=== PATIENT | female | born 2000 | race Caucasian/White ===

== ENCOUNTER → 2020-09-28 13:40 | Outpatient (BNVA) | payer BC, SELFPAY | PROVIDERS: Visit Provider Psychiatry & Neurology Psychiatry | DX: F43.12 Post-traumatic stress disorder, chronic (principal); F33.1 Major depressive disorder, recurrent, moderate; F41.1 Generalized anxiety disorder; F17.200 Nicotine dependence, unspecified, uncomplicated | CPT/HCPCS: 99204 ==

== ENCOUNTER → 2020-10-28 09:02 | Outpatient (BNVA) | payer BC, SELFPAY | PROVIDERS: Visit Provider Nurse Practitioner Women's Health | DX: Z11.3 Encounter for screening for infections with a predominantly sexual mode of transmission (principal); Z12.4 Encounter for screening for malignant neoplasm of cervix | CPT/HCPCS: 87491; 87591; 87661; 88175 ==

== ENCOUNTER → 2020-11-03 11:32 | Outpatient (BNVA) | payer BC, SELFPAY | PROVIDERS: Visit Provider Nurse Practitioner Women's Health | DX: Z30.9 Encounter for contraceptive management, unspecified (principal) | CPT/HCPCS: 81025 ==

== ENCOUNTER → 2020-11-09 07:23 | Outpatient (BNVA) | payer BC, SELFPAY | PROVIDERS: Visit Provider Psychiatry & Neurology Psychiatry | DX: F41.1 Generalized anxiety disorder (principal); F33.1 Major depressive disorder, recurrent, moderate; F43.12 Post-traumatic stress disorder, chronic; F17.200 Nicotine dependence, unspecified, uncomplicated | CPT/HCPCS: 99214 ==

== ENCOUNTER 2021-09-30 21:43 | Observation (INO) | payer BC, SELFPAY ==
[2021-09-30 22:18] VITALS: BP 124/76; PULSE 56; RESP 18; TEMP 36.3; O2SAT 98; BMI 40.7
[2021-10-01] VITALS (23 sets, daily range): BP systolic 113–165; BP diastolic 68–126; PULSE 55–96; RESP 13–20; TEMP 36.1–36.9; O2SAT 91–100
--- NOTE | 2021-10-01 01:16 | W.ED.COVID ---
Documented by User: DEMETRIO Kumar 10/01/21 03:05 HPI - COVID General: Chief Complaint: COVID symptoms Stated Complaint: Covid Symptons Time Seen by Provider: 10/01/21 01:16 Triage information: Has fever, cough or shortness of breath. No known COVID + exposure last 14 days History of Present Illness: 21-year-old female comes in today with complaints of periumbilical abdominal pain followed by nausea and vomiting beginning at 5:00 this evening. Patient denies any chronic medical problems. Patient does use Implanon control, last period was in 2014. Review of history note major depressive disorder with anxiety and nicotine dependence. Patient denies any diarrhea, abnormal vaginal discharge or bleeding. COVID 19 common symptoms: positive nausea and vomiting COVID Results: No Data to Display Review of Systems GI: Reports: abdominal pain, nausea and vomiting PFS ED PFSH: Medical History No pertinent past medical history neghx: htn,dm,thyroid,dvt/pe PCP: None Psychiatric care Surgical History No pertinent past surgical history Family History Father Diabetes Mother Hypertension Denies family history of Colon cancer Ovarian cancer Heart disease Hypercholesteremia Breast cancer Uterine cancer Thyroid disease Stroke Social History Smoking and tobacco status: current every day smoker History of recent travel: Yes Physical Exam Const: COMMON NORMALS: alert GENERAL APPEARANCE: ill appearing HENMT: COMMON NORMALS: normocephalic HEAD & SCALP: normocephalic Neck/C-Spine: COMMON NORMALS: full ROM Resp: COMMON NORMALS: normal respiratory effort and clear to auscultation bilaterally AUSCULTATION: clear to auscultation bilaterally Cardio: COMMON NORMALS: regular rhythm RATE: tachycardic RHYTHM: regular rhythm GI: COMMON NORMALS: Soft to palpation PALPATION: Yes Soft to palpation and Yes Tenderness to palpation present (GI) Details: other (Periumbilical) Extremity: COMMON NORMALS: normal to inspection Neuro: SENSORIUM/ORIENTATION: Yes alert Psych: COMMON NORMALS: cooperative Skin: COMMON NORMALS: no rashes or lesions noted GENERAL SKIN EXAM: no rashes or lesions noted Course ED course: 0300, reviewed patient with Dr. Mckeon who will assume care of the patient at the end of my shift. CT report came back with patient having acute appendicitis. Vital Signs: Vital signs: Vital Signs Temperature 97.4 F L 09/30/21 22:18 Pulse Rate 56 L 09/30/21 22:18 Respiratory Rate 14 10/01/21 03:22 Blood Pressure 124/76 09/30/21 22:18 Pulse Oximetry 98 09/30/21 22:18 [facility] - COVID Medical Decision Making Patient came in tonight with a sudden onset of nausea vomiting and periumbilical pain started about 5:00 this evening. On exam patient appeared ill. Patient had periumbilical pain with rebound tenderness to the right. Respirations were even lungs were clear to auscultation. Skin was warm and dry. Differential diagnosis includes but not limited to acute appendicitis, constipation, ovarian cyst. Laboratory values noted a white count 28,000, CMP was unremarkable, urinalysis was normal, CT of the abdomen pelvis noted appendicolith with acute appendicitis. Reviewed this with Dr. Mckeon who will contact surgery and get patient admitted for intervention. Lab Data : 10/01/21 01:26 10/01/21 01:26 Radiology Impressions Abdomen/Pelvis CT 10/01/21 01:19 IMPRESSION: Dilated fluid-filled proximal appendix measuring up to 13.7 mm, small appendiculith and haziness within the appendiceal mesentery, findings compatible with acute appendicitis. ADDENDUM: 10/01/21 0259 CRITICAL RESULT: THIS REPORT CONTAINS FINDINGS THAT MAY BE CRITICAL TO PATIENT CARE. The findings were communicated with CUCA Azul at 2:57 AM ATTENDING ANESTHESIOLOGIST on 10/01/2021. The findings were acknowledged and understood. Laboratory Results WBC 28.9 10^3/uL (4.0-10.0) H 10/01/21 01:26 RBC 5.41 10^6/uL (4.1-5.3) H 10/01/21 01:26 Hgb 16.4 g/dL (11.5-15.3) H 10/01/21 01:26 Hct 48.9 % (37.0-47.0) H 10/01/21 01:26 MCV 90.4 fl (81-99) 10/01/21 01: MCH 30.3 pg (28.0-34.0) 10/01/21: MCHC 33.5 g/dL (30.0-36.0) 10/01/21: RDW 11.1 % (12.1-15.1) L 10/01/21 01:26 Plt Count 414 10^3/cmm (130-400) H 10/01/21 01: MPV 9.5 fL (7.4-10.4) 10/01/21 01:26 Neut % (Auto) 93.5 % 10/01/21 01: Lymph % (Auto) 3.5 % 10/01/21: Bledsoe % (Auto) 2.1 % 10/01/21: Eos % (Auto) 0.0 % 10/01/21: Baso % (Auto) 0.2 % 10/01/21: Neut # (Auto) 27.05 10^3/uL (1.8-7.7) H 10/01/21 01:26 Lymph # (Auto) 1.0 10^3/uL (0.8-4.8) 10/01/21: Bledsoe # (Auto) 0.6 10^3/uL (0.2-0.9) 10/01/21 01: Eos # (Auto) 0.0 10^3/uL (0.0-0.8) 10/01/21 01: Baso # (Auto) 0.1 10^3/uL (0.0-0.1) 10/01/21 01:26 Nucleated RBC % (auto) 0 % 10/01/21: Nucleated RBCs # 0.0 /100WBC 10/01/21 01:26 Sodium 137 mmol/L (136-145) 10/01/21 01:26 Potassium 4.4 mmol/L (3.5-5.1) 10/01/21 01: Chloride 102 mmol/L (98-107) 10/01/21: Carbon Dioxide 20 mmol/L (22-29) L 10/01/21 01:26 Anion Gap 19.4 (5-19) H 10/01/21 01:26 BUN 12 mg/dL (6-20) 10/01/21 01: Creatinine 0.8 mg/dL (0.5-0.9) 10/01/21: GFR Calculation 88.9 mL/min (90-130) L 10/01/21 01:26 Glucose 165 mg/dL (65-115) H 10/01/21 01:26 Calculated Osmolality 287 mOsm/kg (285-295) 10/01/21 01:26 Calcium 9.4 mg/dL (8.5-10.5) 10/01/21: Total Bilirubin 0.4 mg/dL (0.15-1.2) 10/01/21: AST 25 U/L (0-32) 10/01/21: ALT 23 U/L (0-33) 10/01/21 01: Alkaline Phosphatase 125 IU/L (35-105) H 10/01/21 01:26 Total Protein 8.8 g/dL (6.6-8.7) H 10/01/21: Albumin 5.1 g/dL (3.5-5.2) 10/01/21: Globulin 3.7 g/dL (1.3-4.6) 10/01/21 01:26 HCG, Qual Negative (Negative) 10/01/21: Urine Color Yellow (Yellow) 10/01/21 02: Urine Appearance Sl hazy (CLEAR) 10/01/21 02: Urine pH 5 (5-7) 10/01/21 02: Ur Specific [place] 1.030 (1.005-1.030) 10/01/21 02: Urine Protein 1+ (Negative) H 10/01/21 02: Urine Glucose (UA) Norm (Normal) 10/01/21 02: Urine Ketones 3+ (Negative) H 10/01/21 02: Urine Blood Neg (Negative) 10/01/21 02: Urine Nitrate Negative (Negative) 10/01/21 02: Urine Bilirubin 1+ (Negative) H 10/01/21 02: Urine Urobilinogen Norm mg/dL (Negative) 10/01/21 02: Ur Leukocyte Esterase Negative (Negative) 10/01/21 02: Urine RBC 0-4 /hpf (0-2) H 10/01/21 02:29 Urine WBC 0-4 /hpf (0-5) H 10/01/21 02:29 Ur Squamous Epith Cells 10-15 /hpf (0-5) H 10/01/21 02:29 Amorphous Sediment Not Reportable 10/01/21 02:29 Urine Bacteria 2+ /hpf (NONE) H 10/01/21 02:29 Urine Mucus 3+ /hpf 10/01/21 02:29 No Data to Display Discharge Plan Discharge Patient Disposition: Admitted As Inpatient Clinical Impression: Acute appendicitis Condition: Stable Coding Level of Care Code 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 [employer] Fwd Exam Comprehensive Documented by User: Saeid Mckeon DO 10/01/21 03:30 HPI - COVID General: Chief Complaint: COVID symptoms Stated Complaint: Covid Symptons Time Seen by Provider: 10/01/21 01:16 COVID Results: No Data to Display PFS ED PFSH: Medical History No pertinent past medical history neghx: htn,dm,thyroid,dvt/pe PCP: None Psychiatric care Surgical History No pertinent past surgical history Family History Father Diabetes Mother Hypertension Denies family history of Colon cancer Ovarian cancer Heart disease Hypercholesteremia Breast cancer Uterine cancer Thyroid disease Stroke Social History Smoking and tobacco status: current every day smoker History of recent travel: Yes Course Vital Signs: Vital signs: Vital Signs Temperature 97.4 F L 09/30/21 22:18 Pulse Rate 56 L 09/30/21 22:18 Respiratory Rate 14 10/01/21 03:22 Blood Pressure 124/76 09/30/21 22:18 Pulse Oximetry 98 09/30/21 22:18 [facility] - COVID Medical Decision Making Patient came in tonight with a sudden onset of nausea vomiting and periumbilical pain started about 5:00 this evening. On exam patient appeared ill. Patient had periumbilical pain with rebound tenderness to the right. Respirations were even lungs were clear to auscultation. Skin was warm and dry. Differential diagnosis includes but not limited to acute appendicitis, constipation, ovarian cyst. Laboratory values noted a white count 28,000, CMP was unremarkable, urinalysis was normal, CT of the abdomen pelvis noted appendicolith with acute appendicitis. Reviewed this with Dr. Mckeon who will contact surgery and get patient admitted for intervention. This patient was originally seen by DEMETRIO Yanez.? I agree with his history, evaluation, and treatment. This patient has acute appendicitis. Spoke with surgery. Recommendations are Zosyn every 6 hours, pain and nausea control, LR at 150 an hour, and heparin 5000 subcu every 8 hours.. Surgery later this morning. Lab Data : 10/01/21 01:26 10/01/21 01:26 Radiology Impressions Abdomen/Pelvis CT 10/01/21 01:19 IMPRESSION: Dilated fluid-filled proximal appendix measuring up to 13.7 mm, small appendiculith and haziness within the appendiceal mesentery, findings compatible with acute appendicitis. ADDENDUM: 10/01/21 0259 CRITICAL RESULT: THIS REPORT CONTAINS FINDINGS THAT MAY BE CRITICAL TO PATIENT CARE. The findings were communicated with CUCA Azul at 2:57 AM ATTENDING ANESTHESIOLOGIST on 10/01/2021. The findings were acknowledged and understood. Laboratory Results WBC 28.9 10^3/uL (4.0-10.0) H 10/01/21 01:26 RBC 5.41 10^6/uL (4.1-5.3) H 10/01/21 01:26 Hgb 16.4 g/dL (11.5-15.3) H 10/01/21:26 Hct 48.9 % (37.0-47.0) H 10/01/21:26 MCV 90.4 fl (81-99) 10/01/21 01:26 MCH 30.3 pg (28.0-34.0) 10/01/21 01: MCHC 33.5 g/dL (30.0-36.0) 10/01/21 01: RDW 11.1 % (12.1-15.1) L 10/01/21 01:26 Plt Count 414 10^3/cmm (130-400) H 10/01/21 01:26 MPV 9.5 fL (7.4-10.4) 10/01/21 01:26 Neut % (Auto) 93.5 % 10/01/21 01: Lymph % (Auto) 3.5 % 10/01/21 01:26 Bledsoe % (Auto) 2.1 % 10/01/21 01:26 Eos % (Auto) 0.0 % 10/01/21 01:26 Baso % (Auto) 0.2 % 10/01/21: Neut # (Auto) 27.05 10^3/uL (1.8-7.7) H 10/01/21 01:26 Lymph # (Auto) 1.0 10^3/uL (0.8-4.8) 10/01/21 01:26 Bledsoe # (Auto) 0.6 10^3/uL (0.2-0.9) 10/01/21 01:26 Eos # (Auto) 0.0 10^3/uL (0.0-0.8) 10/01/21 01:26 Baso # (Auto) 0.1 10^3/uL (0.0-0.1) 10/01/21 01:26 Nucleated RBC % (auto) 0 % 10/01/21 01:26 Nucleated RBCs # 0.0 /100WBC 10/01/21 01:26 Sodium 137 mmol/L (136-145) 10/01/21 01:26 Potassium 4.4 mmol/L (3.5-5.1) 10/01/21 01:26 Chloride 102 mmol/L (98-107) 10/01/21 01:26 Carbon Dioxide 20 mmol/L (22-29) L 10/01/21 01:26 Anion Gap 19.4 (5-19) H 10/01/21 01:26 BUN 12 mg/dL (6-20) 10/01/21 01:26 Creatinine 0.8 mg/dL (0.5-0.9) 10/01/21 01:26 GFR Calculation 88.9 mL/min (90-130) L 10/01/21 01:26 Glucose 165 mg/dL (65-115) H 10/01/21 01:26 Calculated Osmolality 287 mOsm/kg (285-295) 10/01/21 01:26 Calcium 9.4 mg/dL (8.5-10.5) 10/01/21 01:26 Total Bilirubin 0.4 mg/dL (0.15-1.2) 10/01/21 01:26 AST 25 U/L (0-32) 10/01/21 01:26 ALT 23 U/L (0-33) 10/01/21 01:26 Alkaline Phosphatase 125 IU/L (35-105) H 10/01/21 01:26 Total Protein 8.8 g/dL (6.6-8.7) H 10/01/21 01: Albumin 5.1 g/dL (3.5-5.2) 10/01/21: Globulin 3.7 g/dL (1.3-4.6) 10/01/21 01:26 HCG, Qual Negative (Negative) 10/01/21: Urine Color Yellow (Yellow) 10/01/21 02: Urine Appearance Sl hazy (CLEAR) 10/01/21 02: Urine pH 5 (5-7) 10/01/21 02: Ur Specific [place] 1.030 (1.005-1.030) 10/01/21 02:29 Urine Protein 1+ (Negative) H 10/01/21 02:29 Urine Glucose (UA) Norm (Normal) 10/01/21 02: Urine Ketones 3+ (Negative) H 10/01/21 02: Urine Blood Neg (Negative) 10/01/21 02: Urine Nitrate Negative (Negative) 10/01/21 02:29 Urine Bilirubin 1+ (Negative) H 10/01/21 02: Urine Urobilinogen Norm mg/dL (Negative) 10/01/21 02: Ur Leukocyte Esterase Negative (Negative) 10/01/21 02:29 Urine RBC 0-4 /hpf (0-2) H 10/01/21 02:29 Urine WBC 0-4 /hpf (0-5) H 10/01/21 02:29 Ur Squamous Epith Cells 10-15 /hpf (0-5) H 10/01/21 02:29 Amorphous Sediment Not Reportable 10/01/21 02:29 Urine Bacteria 2+ /hpf (NONE) H 10/01/21 02:29 Urine Mucus 3+ /hpf 10/01/21 02:29 No Data to Display Discharge Plan Discharge Patient Disposition: Admitted As Inpatient Clinical Impression: Acute appendicitis Condition: Stable Coding Level of Care Code 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
--- NOTE | 2021-10-01 01:19 | CTR_ITS ---
PROCEDURE INFORMATION: Exam: CT Abdomen And Pelvis With Contrast Exam date and time: 10/01/2021 1:19 AM Age: 21 years old Clinical indication: Nausea and vomiting; Abdominal pain; Localized; Right lower quadrant (rlq); Additional info: Periumbilical tenderness, rlq TECHNIQUE: Imaging protocol: Computed tomography of the abdomen and pelvis with contrast. Radiation optimization: All CT scans at this facility use at least one of these dose optimization techniques: automated exposure control; mA and/or kV adjustment per patient size (includes targeted exams where dose is matched to clinical indication); or iterative reconstruction. Contrast material: OMNI 300; Contrast volume: 95 ml; Contrast route: INTRAVENOUS (IV); COMPARISON: No relevant prior studies available. RADIATION DOSE METRICS: Total DLP (mGy-cm): 1945.99 FINDINGS: Liver: Normal. No mass. Gallbladder and bile ducts: Normal. No calcified stones. No ductal dilation. Pancreas: Normal. No ductal dilation. Spleen: Normal. No splenomegaly. Adrenal glands: Normal. No mass. Kidneys and ureters: Normal. No hydronephrosis. Stomach and bowel: Unremarkable. No obstruction. No mucosal thickening. Appendix: There is dilatation of the fluid-filled proximal appendix measuring 13.7 mm. There is a small appendicoliths present as well. Subtle haziness seen in the appendiceal mesentery compatible with mild inflammatory changes. These findings are compatible with acute appendicitis. Intraperitoneal space: Unremarkable. No free air. No significant fluid collection. Vasculature: Unremarkable. No abdominal aortic aneurysm. Lymph nodes: Unremarkable. No enlarged lymph nodes. Urinary bladder: Unremarkable as visualized. Reproductive: Unremarkable as visualized. Bones/joints: Unremarkable. No acute fracture. Soft tissues: Unremarkable. CT/CT abdomen pelvis w con* [id number] IMPRESSION: Dilated fluid-filled proximal appendix measuring up to 13.7 mm, small appendiculith and haziness within the appendiceal mesentery, findings compatible with acute appendicitis.
[2021-10-01 01:35] LABS: Basophils # 0.1 10^3/uL (0.0-0.1); Basophils % 0.2 %; Hematocrit 48.9 % (37.0-47.0); Hemoglobin 16.4 g/dL (11.5-15.3); Lymphocytes % 3.5 %; Mean Corpuscular HGB Conc 33.5 g/dL (30.0-36.0); Mean Corpuscular Hemoglobin 30.3 pg (28.0-34.0); Mean Corpuscular Volume 90.4 fl (81-99); Mean Platelet Volume 9.5 fL (7.4-10.4); Monocytes # 0.6 10^3/uL (0.2-0.9); Monocytes % 2.1 %; Neutrophils # 27.05 10^3/uL (1.8-7.7); Neutrophils % 93.5 %; Nucleated Red Blood Cells % 0 %; Platelet Count 414 10^3/cmm (130-400); Red Blood Count 5.41 10^6/uL (4.1-5.3); Red Cell Distribution Width 11.1 % (12.1-15.1); White Blood Count 28.9 10^3/uL (4.0-10.0)
[2021-10-01] MEDS: morphine 4 mg/mL SDV 1 mL 2 MG IVP ×2 (01:42→13:47)
[2021-10-01] MEDS: ondansetron 2 mg/ML SDV 2 mL 4 MG IVP (01:42)
[2021-10-01] MEDS: sodium chloride 0.9% 1,000 ML 999 ML IV ×2 (01:42→02:26)
[2021-10-01 01:58] LABS: Alanine Aminotransferase 23 U/L (0-33); Albumin Level 5.1 g/dL (3.5-5.2); Alkaline Phosphatase 125 IU/L (35-105); Anion Gap 19.4 (5-19); Aspartate Amino Transferase 25 U/L (0-32); Blood Urea Nitrogen 12 mg/dL (6-20); Calcium 9.4 mg/dL (8.5-10.5); Carbon Dioxide 20 mmol/L (22-29); Chloride 102 mmol/L (98-107); Globulin 3.7 g/dL (1.3-4.6); Glomerular Filtration Rate 88.9 mL/min (90-130); Glucose 165 mg/dL (65-115); Osmolality Calculated 287 mOsm/kg (285-295); Potassium 4.4 mmol/L (3.5-5.1); Sodium 137 mmol/L (136-145); Total Bilirubin 0.4 mg/dL (0.15-1.2); Total Protein 8.8 g/dL (6.6-8.7)
[2021-10-01 02:09] LABS: HCG, Serum Qual Negative (Negative)
[2021-10-01] MEDS: iohexol 300 mg/mL 100 mL Btl IV (02:38)
[2021-10-01] MEDS: morphine 4 mg/mL SDV 1 mL IVP (02:53)
[2021-10-01 03:01] LABS: Bilirubin Urine 1+ (Negative); Blood Urine Neg (Negative); Glucose Urine UA Norm (Normal); Ketones Urine 3+ (Negative); Leukocyte Esterase Urine Negative (Negative); Nitrate Urine Negative (Negative); Protein Urine 1+ (Negative); Urine Appearance SL Hazy (CLEAR); Urine Color Yellow (Yellow); Urobilinogen Urine Norm (Negative); pH Urine 5 (5-7)
[2021-10-01 03:02] LABS: Add Urine Culture? No; Add Urine Microscopic? YES; Bacteria Urine 2+ /hpf; Mucus Urine 3+ /hpf; RBC Urine 0-4 /hpf (0-2); WBC Urine 0-4 /hpf (0-5)
[2021-10-01] MEDS: HYDROmorphone 1 mg/mL INJ 1 mL IVP (03:22)
[2021-10-01] MEDS: piperacillin-tazobactam 3.375 GM in sodium chloride 0.9% (plus) 50 ML IV ×3 (03:23→19:55)
--- NOTE | 2021-10-01 07:04 | PC.NURSE ---
report given to Eron
--- NOTE | 2021-10-01 07:07 | P.HP_ITS ---
Providers/Chief Complaint Admitting Physician: Steven Crum MD Chief Complaint: Abdominal pain History of Present Illness Ms.Aubrey Freire is pleasent 21 year old female Patient morbidly obese with a current weight of 260 pounds and a BMI of 41,history of major depressive disorder with anxiety and nicotine dependence.Presents to the emergency department with abdominal pain associated with nausea and vomiting. Since 5 PM yesterday. Patient reports that the pain was more dull started on the periumbilical area and started shifting towards the right side. He also reports that she had couple of episodes of vomiting preceded with nausea and shaking. As her pain got worse came to the ER for further work-up CBC shows WBC count of 28.9,Hemoglobin of 16.4,platlets 414, serum creatinine 0.8, alk [id number]. CT scan of the abdomen pelvis was done that showed: Liver: Normal. No mass. Gallbladder and bile ducts: Normal. No calcified stones. No ductal dilation. Pancreas: Normal. No ductal dilation. Spleen: Normal. No splenomegaly. Adrenal glands: Normal. No mass. Kidneys and ureters: Normal. No hydronephrosis. Stomach and bowel: Unremarkable. No obstruction. No mucosal thickening. Appendix: There is dilatation of the fluid-filled proximal appendix measuring 13.7 mm. There is a small appendicoliths present as well. Subtle haziness seen in the appendiceal mesentery compatible with mild inflammatory changes. These findings are compatible with acute appendicitis. Intraperitoneal space: Unremarkable. No free air. No significant fluid collection. Vasculature: Unremarkable. No abdominal aortic aneurysm. Lymph nodes: Unremarkable. No enlarged lymph nodes. Urinary bladder: Unremarkable as visualized. Reproductive: Unremarkable as visualized. Bones/joints: Unremarkable. No acute fracture. Soft tissues: Unremarkable. Dilated fluid-filled proximal appendix measuring up to 13.7 mm, small appendiculith and haziness within the appendiceal mesentery, findings compatible with acute appendicitis. General surgery was consulted for further evaluation and management, patient was seen and evaluated in room #3 in the emergency department, reports no history of anesthesia or surgery complication. Review of Systems General: Reports: 10 or more systems reviewed and unremarkable except in HPI and below Medications/Allergies Home Medications Medication Instructions Recorded Confirmed Last Taken Type prazosin 1 mg capsule 2 mg PO .HS #60 cap 05/16/21 09/04/21 Unknown Rx etonogestrel 68 mg subdermal SUBDERMAL .Q Three years ea 09/04/21 09/04/21 Unknown History implant (Nexplanon) duloxetine 30 mg capsule,delayed 30 mg PO DAILY #30 cap 09/05/21 09/05/21 Unknown Rx release (Cymbalta) duloxetine 60 mg capsule,delayed 60 mg PO DAILY #30 cap 09/05/21 09/05/21 Unknown Rx release (Cymbalta) Allergies Allergy/AdvReac Type Severity Reaction Status Date / Time No Known Allergies Allergy Verified 09/04/21 11:37 PFSH Acute PFSH: Medical History No pertinent past medical history neghx: htn,dm,thyroid,dvt/pe PCP: None Psychiatric care Surgical History No pertinent past surgical history Family History Father Diabetes Mother Hypertension Denies family history of Colon cancer Ovarian cancer Heart disease Hypercholesteremia Breast cancer Uterine cancer Thyroid disease Stroke Social History Smoking and tobacco status: current every day smoker History of recent travel: Yes Vitals/I&O/Wt Last Vital Signs Temp 97.4 F L 09/30/21 22:18 Pulse 56 L 09/30/21 22:18 Resp 14 10/01/21 03:22 BP 124/76 09/30/21 22:18 Pulse Ox 98 09/30/21 22:18 09/30/21 10/01/21 10/01/21 22:59 06:59 14:59 Intake Total 2049 Balance 2049 Weight last 48 hrs Weight 260 lb Physical Exam Const: COMMON NORMALS: no acute distress and patient oriented x3 GENERAL APPEARANCE: cooperative ORIENTATION/CONSCIOUSNESS: Yes awake, Yes oriented to person, Yes oriented to place and Yes oriented to time HENMT: COMMON NORMALS: normocephalic HEAD & SCALP: normocephalic Eye: COMMON NORMALS: Equal, round and reactive pupils present and no scleral icterus PUPIL: Yes Equal, round and reactive pupils present Lymph: LYMPHATIC: no lymphadenopathy noted Chest: COMMONS NORMALS: normal inspection of the chest Resp: COMMON NORMALS: normal respiratory effort and clear to auscultation bilaterally AUSCULTATION: clear to auscultation bilaterally Cardio: COMMON NORMALS: S1 normal heart sound present and S2 normal heart sound present; negative for No murmurs present (Cardio) HEART SOUNDS: S1 normal heart sound present and S2 normal heart sound present GI: COMMON NORMALS: Soft to palpation; negative for No hepatosplenomegaly present INSPECTION: Yes normal to inspection PALPATION: Yes Soft to palpation, No Firmness to palpation present (GI), Yes Tenderness to palpation present (GI) Details: RLQ (Localized tendern ess and guarding maximal at McBurney's point), No Guarding due to palpation present (GI), No Rigid due to palpation and No No hepatosplenomegaly present Neuro: COMMON NORMALS: patient oriented x3 SENSORIUM/ORIENTATION: Yes oriented to person, Yes oriented to place and Yes oriented to time Psych: COMMON NORMALS: mental status grossly normal Skin: COMMON NORMALS: no rashes or lesions noted GENERAL SKIN EXAM: no rashes or lesions noted Data : 10/01/21 01:26 10/01/21 01:26 A&P Assessment and plan (1) Acute appendicitis: After thorough history physical examination and reviewing the chart and images with my personal interpretion, I counseled the patient for laparoscopic appendectomy possible open. Indications, risks, benefits and alternatives were all discussed with the patient and did agree to proceed. Rationale was carefully and clearly discussed with the patient.Appropriate informed consent have been reviewed and signed Appropriate IV fluid hydration in the form of LR 150 mL/h Zosyn 3.375 mg IV every 6 hours Assurance and education All questions have been answered and all concerns have been addressed to patient's satisfaction. 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
--- NOTE | 2021-10-01 08:27 | P.ANESASSM_ITS ---
Pre-Anesthetic Assessment Height/Weight: Height 1.7 m Weight 117.934 kg Temp Pulse Resp BP Pulse Ox 97.0 F L 88 20 H 154/104 100 10/01/21 08:04 10/01/21 08:04 10/01/21 08:04 10/01/21 08:04 10/01/21 08:04 Preop Diagnosis: Appendicitis Operation Date: 10/01/21 10:50 Proposed Procedures p Laparoscopic Appendectomy(Right) - Steven Crum MD Familial anesthetic complications: None Was Beta Derek taken within 24 hours: N/A Was Clonidine taken within 24 hours: N/A Last intake: > 8 hrs Social No alcohol and No tobacco vapes and smokes a substance that contains a product wi legal THC Exam alert, oriented x 3, clear to auscultation bilaterally and regular rate & rhythm Airway Mallampati: Class II Dentition: full Metabolic Morbid Obesity Anesthetic Plan ASA status: 2 Anesthesia: General Medications/Allergies Home Medications Medication Instructions Recorded Confirmed Last Taken Type prazosin 1 mg capsule 2 mg PO .HS #60 cap 05/16/21 09/04/21 Unknown Rx etonogestrel 68 mg subdermal SUBDERMAL .Q Three years ea 09/04/21 09/04/21 Unknown History implant (Nexplanon) duloxetine 30 mg capsule,delayed 30 mg PO DAILY #30 cap 09/05/21 09/05/21 Unknown Rx release (Cymbalta) duloxetine 60 mg capsule,delayed 60 mg PO DAILY #30 cap 09/05/21 09/05/21 Unknown Rx release (Cymbalta) Allergies Allergy/AdvReac Type Severity Reaction Status Date / Time No Known Allergies Allergy Verified 09/04/21 11:37 [facility] Anesthesia Medical History No pertinent past medical history neghx: htn,dm,thyroid,dvt/pe PCP: None Psychiatric care Surgical History No pertinent past surgical history Family History Father Diabetes Mother Hypertension Denies family history of Colon cancer Ovarian cancer Heart disease Hypercholesteremia Breast cancer Uterine cancer Thyroid disease Stroke Social History Smoking and tobacco status: current every day smoker History of recent travel: Yes Data Anesthesia : 10/01/21 01:26 10/01/21 01:26 Short CBC 10/01/21 Range/Units 01:26 WBC 28.9 H (4.0-10.0) 10^3/uL Hgb 16.4 H (11.5-15.3) g/dL Hct 48.9 H (37.0-47.0) % MCV 90.4 (81-99) fl Plt Count 414 H (130-400) 10^3/cmm Neut % (Auto) 93.5 % Neut # (Auto) 27.05 H (1.8-7.7) 10^3/uL BMP 10/01/21 01:26 Sodium 137 Potassium 4.4 Chloride 102 Carbon Dioxide 20 L BUN 12 Creatinine 0.8 Glucose 165 H Calcium 9.4 Liver Function 10/01/21 Range/Units 01:26 Total Bilirubin 0.4 (0.15-1.2) mg/dL AST 25 (0-32) U/L ALT 23 (0-33) U/L Alkaline Phosphatase 125 H (35-105) IU/L Albumin 5.1 (3.5-5.2) g/dL Urine 10/01/21 Range/Units 02:29 Urine Color Yellow (Yellow) Urine Appearance Sl hazy (CLEAR) Urine pH 5 (5-7) Ur Specific [place] 1.030 (1.005-1.030) Urine Protein 1+ H (Negative) Urine Glucose (UA) Norm (Normal) Urine Ketones 3+ H (Negative) Urine Nitrate Negative (Negative) Urine Bilirubin 1+ H (Negative) Ur Leukocyte Esterase Negative (Negative) Urine RBC 0-4 H (0-2) /hpf Urine WBC 0-4 H (0-5) /hpf Cardiac Studies: No Data to Display
[2021-10-01] MEDS: heparin 5,000 unit/mL INJ 1 mL 2000 UNIT SUBCUT (10:18)
[2021-10-01] MEDS: ceFAZolin 1,000 mg SDV 2000 MG IVP (10:22)
[2021-10-01] MEDS: scopolamine 1.5 Patch 1 PATCH TRANSDERMA (10:55)
[2021-10-01] MEDS: lidocaine 2% INJ 20 mL INJECTION (10:57)
--- NOTE | 2021-10-01 11:31 | P.OP_ITS ---
Operative Report Date of procedure: October 01, 2021 Pre-op diagnosis: Preop Diagnosis Appendicitis Post-op diagnosis: Acute suppurative appendicitis without perforation Procedure done: Laparoscopic appendectomy Implants: 2 pieces of Surgicel Specimens removed/disposition: Appendix Surgeon: Steven Crum MD Family Welfare Social Work Professor: Surgical fitz Maurer Circulating nurse Janice Anesthesia: General (ROXANNA Mendez) Estimated blood loss: 20 IV fluids: 800 Complications: No immediate complications Procedure: Patient after being identified in the holding area and asked to void urine, and informed consent per chart ,patient was then taken back to the OR placed in supine position got intubated by anesthesia left arm was tucked tucked ,Timeout was done verifying the patient's name/date of /planned procedure and destination after the procedure, all were in agreement., preoperative antibiotics administered per protocol. prep and drape of the abdomen was done under the usual sterile technique. Started by longitudinal skin incision supraumbilical using a Haddad trocar technique safe entry to the abdominal cavity was achieved verified by using 10 mm zero degree laparoscopy, switched to a 30? scope under direct visualization a suprapubic 5 mm trocar was inserted followed by another 5 mm trocar inserted in the left lower quadrant, I was able to position the patient in an T Booth and left side down, dissection of the prececal acutely inflamed appendix there was some adhesions towards the lateral pelvic wall that was taken down by sharp and blunt dissection, attention was deviated to the healthy base of the appendix where I had to switch the camera to 5 mm 30? scope got introduced through the left lower quadrant and through the Haddad trocar under direct visualization a GI stapler 45 mm blue load was applied at the healthy part of the base of the appendix, and an Endoloop PDS was applied onto the mesoappendix for control , the appendix was then retrieved in an Endo Catch bag, final survey was done of the abdomen and pelvis , irrigation with warm saline, and suction was obtained, were mercury fluid like in the pelvis due to reaction from the inflamed appendix. Multiple 5 mm clips were applied onto the mesoappendix as well as the appendectomy staple line and a right lateral pelvic wall for minimal oozing. Final look laparoscopy was done showing no other abnormalities or injuries, all trocars were taken out under direct visualization after the supraumblical trocar site was closed by #1 PDS sutures under direct vision using fascial closure device followed by deep subdermal 3-0 Vicryl for the supraumbilical skin incisi on.,followed by skin closure using skin chance of all trocar site incisions. infiltration of local lidocaine 2% was done to all incision sites.Dry dressing was applied. Count was completed at the end of the procedure for [place] , sponges and instruments Patient tolerated the procedure well and was transferred to the recovery area after extubation. I was present for the whole entire procedure
[2021-10-01] MEDS: fentaNYL 50 mcg/mL INJ 2mL IVP ×2 (12:00→12:06)
[2021-10-01] MEDS: lactated ringers 1,000 ML 100 ML IV (12:41)
[2021-10-01] MEDS: famotidine 20 mg/2 mL INJ IVP (13:46)
[2021-10-01] MEDS: HYDROcodone-acetaminophen 5-325 mg Tablet 1 TAB PO ×2 (18:12→23:56)
[2021-10-02] VITALS (7 sets, daily range): BP systolic 109–124; BP diastolic 61–75; PULSE 62–77; RESP 18; TEMP 36.6–36.9; O2SAT 93–97
[2021-10-02] MEDS: famotidine 20 mg/2 mL INJ IVP (00:02)
[2021-10-02] MEDS: lactated ringers 1,000 ML 100 ML IV (03:18)
[2021-10-02] MEDS: piperacillin-tazobactam 3.375 GM in sodium chloride 0.9% (plus) 50 ML IV (04:09)
--- NOTE | 2021-10-02 06:29 | PC.NURSE ---
SHIFT SUMMARY Has done well tonight. Has been medicated X1 with po Hydrocodone. Bandaids to incisions all C&D. Has ambulated in [place] X2 with good tolerance. Taking clear liquid diet well and denies any nausea. Has not passed gas yet. Urinating well. IV infusing without difficulty and receiving IV antibiotics. Dr Crum in to see this am. Will be discharged today pending lab results
[2021-10-02 06:45] LABS: Basophils % 0.2 %; Eosinophils % 0.1 %; Hematocrit 39.2 % (37.0-47.0); Hemoglobin 12.9 g/dL (11.5-15.3); Lymphocytes # 1.8 10^3/uL (0.8-4.8); Lymphocytes % 10.2 %; Mean Corpuscular HGB Conc 32.9 g/dL (30.0-36.0); Mean Corpuscular Hemoglobin 29.7 pg (28.0-34.0); Mean Corpuscular Volume 90.1 fl (81-99); Mean Platelet Volume 10.1 fL (7.4-10.4); Monocytes # 0.9 10^3/uL (0.2-0.9); Monocytes % 5.1 %; Neutrophils % 84.2 %; Nucleated Red Blood Cells % 0 %; Platelet Count 324 10^3/cmm (130-400); Red Blood Count 4.35 10^6/uL (4.1-5.3); Red Cell Distribution Width 11.3 % (12.1-15.1); White Blood Count 17.9 10^3/uL (4.0-10.0)
[2021-10-02 07:14] LABS: Anion Gap 14.9 (5-19); Blood Urea Nitrogen 9 mg/dL (6-20); Calcium 8.5 mg/dL (8.5-10.5); Carbon Dioxide 23 mmol/L (22-29); Chloride 107 mmol/L (98-107); Glomerular Filtration Rate 123.9 mL/min (90-130); Glucose 100 mg/dL (65-115); Osmolality Calculated 291 mOsm/kg (285-295); Potassium 3.9 mmol/L (3.5-5.1); Sodium 141 mmol/L (136-145)
[2021-10-02] MEDS: HYDROcodone-acetaminophen 5-325 mg Tablet 1 TAB PO (08:28)
--- NOTE | 2021-10-02 10:26 | PM.SDS ---
Short Stay Summary Providers Date of Admit/Discharge: 10/02/21 Attending Provider: Steven Crum MD Chief Complaint: Abdominal pain HPI History of Present Illness Ms.Aubrey Freire is pleasent? 21 year old female Patient morbidly obese with a current weight of 260 pounds and a BMI of 41,history of major depressive disorder with anxiety and nicotine dependence.Presents to the emergency department with abdominal pain associated with nausea and vomiting.? Since 5 PM yesterday.? Patient reports that the pain was more dull started on the periumbilical area and started shifting towards the right side.? He also reports that she had couple of episodes of vomiting preceded with nausea and shaking.? As her pain got worse came to the ER for further work-up CBC shows WBC count of 28.9,Hemoglobin of 16.4,platlets 414, serum creatinine 0.8, alk [id number]. ?CT scan of the abdomen pelvis was done that showed: Liver: Normal. No mass. Gallbladder and bile ducts: Normal. No calcified stones. No ductal dilation. Pancreas: Normal. No ductal dilation. Spleen: Normal. No splenomegaly. Adrenal glands: Normal. No mass. Kidneys and ureters: Normal. No hydronephrosis. Stomach and bowel: Unremarkable. No obstruction. No mucosal thickening. Appendix: There is dilatation of the fluid-filled proximal appendix measuring 13.7 mm. There is a small appendicoliths present as well. Subtle haziness seen in the appendiceal mesentery compatible with mild inflammatory changes. These findings are compatible with acute appendicitis. Intraperitoneal space: Unremarkable. No free air. No significant fluid collection. Vasculature: Unremarkable. No abdominal aortic aneurysm. Lymph nodes: Unremarkable. No enlarged lymph nodes. Urinary bladder: Unremarkable as visualized. Reproductive: Unremarkable as visualized. Bones/joints: Unremarkable. No acute fracture. Soft tissues: Unremarkable. Dilated fluid-filled proximal appendix measuring up to 13.7 mm, small appendiculith and haziness within the appendiceal mesentery, findings compatible with acute appendicitis. General surgery was consulted for further evaluation and management, patient was seen and evaluated in room #3 in the emergency department, reports no history of anesthesia or surgery complication. Patient undergone uneventful laparoscopic appendectomy, was kept in observation status for perioperative care. Still awaiting bowel functions. Review of Systems General: Reports: 10 or more systems reviewed and unremarkable except in HPI and below Home Meds/Allergies Home Medications and Allergies Home Medications Medication Instructions Recorded Confirmed Type etonogestrel 68 mg subdermal 68 mg SUBDERMAL .Q Three years ea 09/04/21 10/02/21 History implant (Nexplanon) Allergies Allergy/AdvReac Type Severity Reaction Status Date / Time No Known Allergies Allergy Verified 10/02/21 14:42 PFSH Acute PFSH: Medical History No pertinent past medical history neghx: htn,dm,thyroid,dvt/pe PCP: None Psychiatric care Surgical History No pertinent past surgical history Family History Father Diabetes Mother Hypertension Denies family history of Colon cancer Ovarian cancer Heart disease Hypercholesteremia Breast cancer Uterine cancer Thyroid disease Stroke Social History Smoking and tobacco status: current every day smoker History of recent travel: Yes Vitals/I&O/Wt Last Vital Signs Temp 98 F 10/02/21 07:35 Pulse 75 10/02/21 07:35 Resp 18 10/02/21 07:35 BP 109/61 10/02/21 07:35 Pulse Ox 97 10/02/21 07:35 10/01/21 10/02/21 10/02/21 22:59 06:59 14:59 Intake Total 1650 / 1650 530 / 2180 150 / 150 Output Total 1300 / 1320 Balance 1650 / 1630 -770 / 860 150 / 150 Weight last 48 hrs Weight 260 lb Physical Exam Narrative: EXAM NARRATIVE: Patient is conscious alert oriented X3 No apparent distress BMI 41 Head and neck examination PERRLA no masses no cervical lymphadenopathy no jaundice Abdomen nontender except mildly at the incision sites,nondistended soft no organomegaly guarding or rigidity/no signs of peritonitis, dressing in place without complication Extremities no cyanosis no clubbing no edema Hospital Course Hospital Course Pleasant 21 years old female patient undergone uneventful laparoscopic appendectomy and was kept in the hospital for postoperative care. Started clear liquid diet and tolerated it well. Maintained stable vital signs and adequate urine output, started passing gas and met the appropriate criteria for discharge home. Meanwhile trending down of WBC count to 17.9, she was maintained on antimicrobial therapy parenterally. Discharge Summary Patient undergone uneventful laparoscopic appendectomy and met the appropriate and safe criteria for discharge home. Patient was placed on p.o. pain medications and antibiotics on discharge. With the plan to advance diet as tolerated and follow-up at surgery office in 10 days SSS Data Data Completed and Pending: Completed Studies During Hospitalization Category Date Time Status CT abdomen pelvis w con* [id number] Urge nt Cat Scan 10/01/21 01:19 Completed Pending at discharge Category Date Time Status ES surgery / GI i mages Routine Exams 10/01/21 10:04 Taken Basic Metabolic P beata AM LABS Lab 10/03/21 04:00 Uncollected Basic Metabolic P beata AM LABS Lab 10/04/21 04:00 Uncollected Complete Blood Co unt w/Auto AM LABS Lab 10/03/21 04:00 Uncollected Complete Blood Co unt w/Auto AM LABS Lab 10/04/21 04:00 Uncollected Pathology: Surgic al [PTH] Routine Pth 10/01/21 11:18 Ordered Diagnoses at Discharge Discharge Diagnosis (1) Acute appendicitis: Details from hospital stay: Condition resolved and we will plan to discharge patient home today after she has been passing gas Education about avoiding constipation Avoid heavy lifting per instruction Return to surgery office as scheduled Assurance and education All questions have been answered and all concerns have been addressed to patient's satisfaction. Status: Acute (2) Morbid obesity: Details from hospital stay: Patient will certainly benefit from supervised medical weight loss Status: Acute Discharge Plan Discharge Patient Disposition: Home Condition: Stable Prescriptions: New hydrocodone-acetaminophen 5-325 mg tablet 1 tab PO Q6H PRN (Reason: pain) Qty: 28 0RF Augmentin 875-125 mg tablet 1 tab PO Q12H Qty: 14 0RF Continued duloxetine [Cymbalta] 30 mg capsule,delayed release(DR/EC) 30 mg PO DAILY Qty: 30 0RF duloxetine [Cymbalta] 60 mg capsule,delayed release(DR/EC) 60 mg PO DAILY Qty: 30 0RF Rx Instructions: Start after 1 month on 30 mg. Nexplanon 68 mg implant 68 mg subdermal .Q Three years 0RF Discharge Orders: Discharge Order (Routine); Ordered 10/02/21 Ordered By: Steven Crum Referrals: Steven Crum MD [Physician] - 10/12/21 1:50 pm (Return to surgery office in 10 days) Discharge Diet: Advance as tolerated Discharge Activity: Limit activity as instructed Patient Instructions: Hydrocodone/Acetaminophen (By mouth), Amoxicillin/Clavulanate Potassium (By mouth), Appendicitis (GEN), Opioid Safety Activity Restrictions/Additional Instructions: 1. Patient can shower after 48 hours from surgery 2. Remove Dermabond 7 to 10 days after surgery, if there is a secondary dressing can take down after 48 hours. 3. Up and walking as tolerated 4. Do not lift more than 5 pounds first 2 weeks after surgery and not more than 25 pounds 6 to 8 weeks after surgery. 5. Do not operate heavy machinery or drive while using pain medications. 6.Contact the office or return to the ER for worsening nausea vomiting fevers or chills, or noticing any redness around incision sites or discharge. Attestations Medical Necessity Statement*: Observation for postoperative care including parenteral antimicrobial therapy and pain control Time Spent in Patient Care*: greater than 30 min Status at Discharge: Cognitive status at discharge: cognitively intact, Behavioral status at discharge: cooperative, Functional status at discharge: independent ambulation Overall status at discharge: patient is progressing back to baseline Quality Metrics Clinical Quality Measures: [ No reported AMI, CVA or VTE this stay] Coding Level of Care Code Acute Geography Teacher for [facility] Fwd Diagnoses Acute appendicitis K35.80 Morbid obesity E66.01
--- NOTE | 2021-10-02 10:37 | PC.CHAP ---
Pastoral Care Encounter/Spiritual Assessment Type of Contact [] Declined agent licensing clerk visit [] Patient/Family/Request visit [] Outpatient visit [] Follow-up visit [] Physician referral [] Code/Alert [x] Routine visit [] Staff referral [] Actively dying [] Patient sleeping [] Family support [] [] Out of room [] Palliative care [] [] Receiving care in room [] Pre-surgical visit [] Trauma [] Long length of stay [] ICU visit [] Other: Relational/Emotional Strength x[] Patient feels connected with others/family/visitors/staff [] Distress [] Loneliness/isolation [] Abandonment Spirituality of Patient [x] Person of Neda [x] Attends Hoahaoism of their Neda [] Believes in Prayer [] Reads Bible or Worship materials [] There are Spiritual issues to be addressed Licensed Prosthetist/Orthotist Interventions [x] Prayer [x] Active listening [x] Non-anxious presence [x] Spiritual/emotional support [] Crisis/trauma care [] Spiritual counseling [] Bereavement support [] Provided bereavement packet [] Provided Bible/devotional materials [] Provided toy/stuffed animal, coloring book to patient or family member [] Provided Communion [] Anointing/[place] [] Salvation [x] Completed spiritual assessment [] Other: Impact on Illness or Injury [] Angry [] Fearful [] Anxious [] Often cries [] Exhaustion [] Unable to work [] Unable to attend hindu [] Unable to walk/stand [] Unable to read [] Unable to drive [] Unable to eat/drink [] Unable to sleep [] Unable to be with family [] Patient intubated [] Other: Summary Time spent with patient 10 min
== END 2021-10-02 14:00 | disposition home or self-care (01) ==
LOC: ER 10-01 07:08 → OR 10-01 07:54 → MEDSURG 10-01 11:33
PROVIDERS: Emergency Medicine; Nurse Practitioner Family; Admitting Provider Surgery; Emergency Provider Emergency Medicine; Visit Provider Surgery
PROC: 0DTJ4ZZ Resection of Appendix, Percutaneous Endoscopic Approach (ICD-10-PCS; CPT 44970; principal; 2021-10-01 10:30)
DX: K35.891 Other acute appendicitis without perforation, with gangrene (principal); E66.01 Morbid (severe) obesity due to excess calories; Z68.41 Body mass index [BMI] 40.0-44.9, adult; F17.210 Nicotine dependence, cigarettes, uncomplicated
CPT/HCPCS: 44970; 36415; 74177; 80048; 80053; 81001; 84703; 85025; 88304; 96365; 96372; 96375; 96376; 99285; G0378; J0330; J0690; J1100; J1170; J1644; J2270; J2405; J2543; J2704; J2710; J3010; J3490; J7030; Q9967